=== PATIENT | female | born 1960 | race Caucasian/White ===

== ENCOUNTER 2016-12-21 19:25 | Inpatient (IN) | payer MEDICAID ==
[~2016-12-21] VITALS: Ht 157.5 cm; Wt 131.9 kg
[2016-12-21] MEDS ORDERED: OPTIRAY 350 100 ML VIAL HMH IV ONE (19:26)
[2016-12-21] MEDS ORDERED: ONDANSETRON 4 MG VIAL ONE (22:11)
[2016-12-21] MEDS ORDERED: Furosemide 40 MG/4 ML VIAL ONE (22:11)
[2016-12-21] MEDS ORDERED: DILAUDID 1 MG/ML AMP ONE (22:12)
[2016-12-22] MEDS ORDERED: SODIUM CHLORIDE 0.9% 500 ML IV ONE (01:47)
[2016-12-22] MEDS ORDERED: DILAUDID 1 MG/ML AMP ONE (01:47)
[2016-12-22] MEDS ORDERED: SODIUM CHLORIDE 0.9% 100 ML IV ONE (03:10)
[2016-12-22] MEDS ORDERED: CEFTRIAXONE 1 GM VIAL ONE (03:10)
[2016-12-22] MEDS ORDERED: KETOROLAC 30 MG/ML VIAL ONE (04:30)
[2016-12-22] MEDS ORDERED: MAG HYDROX 30 ML UDC PO PRN (04:35)
[2016-12-22] MEDS ORDERED: SALINE FLUSH 10 ML FLUSH PRN (04:35)
[2016-12-22] MEDS ORDERED: BISACODYL EC 5 MG TAB PO PRN (04:35)
[2016-12-22] MEDS ORDERED: ALU/MAG/SIM 30 ML UDC PO PRN (04:35)
[2016-12-22] MEDS ORDERED: BISACODYL 10 MG SUPP RECTAL PRN (04:35)
[2016-12-22 06:18] VITALS: BP_SYST 134; RESP 18; TEMP 98.8
[2016-12-22 06:40] VITALS: Ht 157.5 cm; Wt 131.9 kg
[2016-12-22] MEDS: PIPERACIL/TAZO 3.375GM/50ML 50 ML IV SCH ×3 (07:02→17:13)
[2016-12-22] MEDS: SODIUM CHLORIDE 0.9% FLUSH BAG 500 ML IV SCH (07:02)
[2016-12-22] MEDS: SALINE FLUSH 10 ML FLUSH SCH ×2 (08:00→20:17)
[2016-12-22] MEDS ORDERED: DEXTROSE 50% SYRINGE 50 ML IV PRN (08:15)
[2016-12-22] MEDS ORDERED: GLUCAGON 1 MG VIAL IM PRN (08:15)
[2016-12-22] MEDS: ENOXAPARIN 40 MG/0.4 ML SYR SUBQ SCH (08:37)
[2016-12-22] MEDS: ACETAMINOPHEN 325 MG TAB PO PRN (08:46)
[2016-12-22] MEDS ORDERED: FAMOTIDINE 20 MG TAB PO SCH (09:00)
[2016-12-22 10:32] VITALS: RESP 18
[2016-12-22] MEDS: Furosemide 40 MG/4 ML VIAL IV SCH ×2 (11:28→16:02)
[2016-12-22 12:03] VITALS: BP_SYST 113; RESP 18; TEMP 98.6
[2016-12-22] MEDS: CALCIUM CARB/VIT D3 600 MG TAB PO SCH ×2 (12:27→20:19)
[2016-12-22] MEDS: ASPIRIN 81 MG CHEW TAB PO SCH (12:28)
[2016-12-22] MEDS: GABAPENTIN 400 MG CAP PO SCH ×3 (12:28→20:17)
[2016-12-22] MEDS: CHOLECALCIFEROL 1,000 UNITS TAB PO SCH (12:28)
[2016-12-22] MEDS: LISINOPRIL 5 MG TAB PO SCH (12:28)
[2016-12-22 15:18] VITALS: BP_SYST 118; RESP 20; TEMP 97.9
[2016-12-22 19:22] VITALS: BP_SYST 110; RESP 20; TEMP 98.9
[2016-12-22] MEDS: FAMOTIDINE 40 MG TAB PO SCH (20:18)
[2016-12-22] MEDS: KCL CR 20 MEQ TAB PO SCH (20:19)
[2016-12-22 23:15] VITALS: RESP 28
[2016-12-23] VITALS (34 sets, daily range): BP systolic 86–130; RESP 12–29; TEMP 98.4–99.7
[2016-12-23] MEDS: NEB-ATROVENT INH SCH ×7 (00:25→22:46)
[2016-12-23] MEDS: NEB-ALBUTEROL 2.5 MG/3 ML INH SCH ×7 (00:25→22:46)
[2016-12-23] MEDS ORDERED: MISSING DOSE XX ONE ×3 (01:50→07:55)
[2016-12-23] MEDS: PIPERACIL/TAZO 3.375GM/50ML 50 ML IV SCH ×4 (01:56→17:20)
[2016-12-23] MEDS: Furosemide 40 MG/4 ML VIAL IV SCH ×3 (02:05→16:00)
[2016-12-23] MEDS: SODIUM CHLORIDE 0.9% FLUSH BAG 500 ML IV SCH (05:48)
[2016-12-23] MEDS: SALINE FLUSH 10 ML FLUSH SCH ×2 (07:59→20:00)
[2016-12-23] MEDS ORDERED: PHARMACY TO DOSE VANCOMYCIN IM SCH (08:15)
[2016-12-23] MEDS ORDERED: VANCOMYCIN 2,500 MG in SODIUM CHLORIDE 0.9% 500 ML IV ONE (08:50)
[2016-12-23] MEDS: KCL CR 20 MEQ TAB PO SCH ×2 (09:00→21:39)
[2016-12-23] MEDS ORDERED: VANCOMYCIN 1,000 MG in SODIUM CHLORIDE 0.9% 250 ML IV SCH (09:00)
[2016-12-23] MEDS: CHOLECALCIFEROL 1,000 UNITS TAB PO SCH (09:46)
[2016-12-23] MEDS: ASPIRIN 81 MG CHEW TAB PO SCH (09:46)
[2016-12-23] MEDS: CALCIUM CARB/VIT D3 600 MG TAB PO SCH ×2 (09:46→21:39)
[2016-12-23] MEDS: LISINOPRIL 5 MG TAB PO SCH (09:46)
[2016-12-23] MEDS: GABAPENTIN 400 MG CAP PO SCH ×3 (09:47→21:39)
[2016-12-23] MEDS: ENOXAPARIN 40 MG/0.4 ML SYR SUBQ SCH (09:48)
[2016-12-23] MEDS: MICONAZOLE 2% PWD TOPICAL SCH ×2 (11:57→21:55)
[2016-12-23] MEDS: ACETAMINOPHEN 325 MG TAB PO PRN (12:43)
[2016-12-23] MEDS: FAMOTIDINE 40 MG TAB PO SCH (21:39)
[2016-12-23] MEDS ORDERED: VANCOMYCIN 1,750 MG in SODIUM CHLORIDE 0.9% 500 ML IV SCH (23:00)
[2016-12-24] VITALS (20 sets, daily range): BP systolic 96–137; RESP 16–32; TEMP 98.1–98.8
[2016-12-24] MEDS: Furosemide 40 MG/4 ML VIAL IV SCH ×4 (00:21→23:16)
[2016-12-24] MEDS: PIPERACIL/TAZO 3.375GM/50ML 50 ML IV SCH ×2 (00:21→05:54)
[2016-12-24] MEDS: NEB-ATROVENT INH SCH ×6 (03:17→22:41)
[2016-12-24] MEDS: NEB-ALBUTEROL 2.5 MG/3 ML INH SCH ×6 (03:17→22:42)
[2016-12-24] MEDS: SODIUM CHLORIDE 0.9% FLUSH BAG 500 ML IV SCH (05:54)
[2016-12-24] MEDS: SALINE FLUSH 10 ML FLUSH SCH ×2 (08:22→20:12)
[2016-12-24] MEDS: CALCIUM CARB/VIT D3 600 MG TAB PO SCH ×2 (08:23→20:12)
[2016-12-24] MEDS: GABAPENTIN 400 MG CAP PO SCH ×3 (08:23→20:12)
[2016-12-24] MEDS: CHOLECALCIFEROL 1,000 UNITS TAB PO SCH (08:23)
[2016-12-24] MEDS: ASPIRIN 81 MG CHEW TAB PO SCH (08:23)
[2016-12-24] MEDS: LISINOPRIL 5 MG TAB PO SCH (08:24)
[2016-12-24] MEDS: KCL CR 20 MEQ TAB PO SCH ×2 (08:24→20:12)
[2016-12-24] MEDS: ACETAMINOPHEN 325 MG TAB PO PRN (08:25)
[2016-12-24] MEDS: MICONAZOLE 2% PWD TOPICAL SCH ×2 (08:26→21:51)
[2016-12-24] MEDS: ENOXAPARIN 40 MG/0.4 ML SYR SUBQ SCH (08:27)
[2016-12-24] MEDS: FAMOTIDINE 40 MG TAB PO SCH (20:12)
[2016-12-25] VITALS (9 sets, daily range): BP systolic 98–144; RESP 15–26; TEMP 97.7–98.5
[2016-12-25] MEDS: NEB-ALBUTEROL 2.5 MG/3 ML INH SCH ×6 (02:39→22:48)
[2016-12-25] MEDS: NEB-ATROVENT INH SCH ×6 (02:39→22:48)
[2016-12-25] MEDS: SODIUM CHLORIDE 0.9% FLUSH BAG 500 ML IV SCH (02:41)
[2016-12-25] MEDS: ACETAMINOPHEN 325 MG TAB PO PRN (07:17)
[2016-12-25] MEDS: SALINE FLUSH 10 ML FLUSH SCH ×2 (08:42→19:44)
[2016-12-25] MEDS: Furosemide 40 MG/4 ML VIAL IV SCH ×3 (08:42→23:56)
[2016-12-25] MEDS: GABAPENTIN 400 MG CAP PO SCH ×3 (08:43→20:57)
[2016-12-25] MEDS: LISINOPRIL 5 MG TAB PO SCH (08:43)
[2016-12-25] MEDS: CALCIUM CARB/VIT D3 600 MG TAB PO SCH ×2 (08:43→20:58)
[2016-12-25] MEDS: CHOLECALCIFEROL 1,000 UNITS TAB PO SCH (08:43)
[2016-12-25] MEDS: ASPIRIN 81 MG CHEW TAB PO SCH (08:43)
[2016-12-25] MEDS: KCL CR 20 MEQ TAB PO SCH ×2 (08:43→20:58)
[2016-12-25] MEDS: ENOXAPARIN 40 MG/0.4 ML SYR SUBQ SCH (08:43)
[2016-12-25] MEDS: MICONAZOLE 2% PWD TOPICAL SCH ×2 (08:44→20:58)
[2016-12-25] MEDS: FAMOTIDINE 40 MG TAB PO SCH (20:57)
[2016-12-26] VITALS (7 sets, daily range): BP systolic 110–124; RESP 20–24; TEMP 98–98.6
[2016-12-26] MEDS: SODIUM CHLORIDE 0.9% FLUSH BAG 500 ML IV SCH (01:55)
[2016-12-26] MEDS: NEB-ATROVENT INH SCH ×5 (02:35→18:32)
[2016-12-26] MEDS: NEB-ALBUTEROL 2.5 MG/3 ML INH SCH ×5 (02:35→18:32)
[2016-12-26] MEDS: ENOXAPARIN 40 MG/0.4 ML SYR SUBQ SCH (09:04)
[2016-12-26] MEDS: CHOLECALCIFEROL 1,000 UNITS TAB PO SCH (09:05)
[2016-12-26] MEDS: KCL CR 20 MEQ TAB PO SCH (09:05)
[2016-12-26] MEDS: ASPIRIN 81 MG CHEW TAB PO SCH (09:05)
[2016-12-26] MEDS: LISINOPRIL 5 MG TAB PO SCH (09:05)
[2016-12-26] MEDS: GABAPENTIN 400 MG CAP PO SCH ×2 (09:05→16:50)
[2016-12-26] MEDS: CALCIUM CARB/VIT D3 600 MG TAB PO SCH (09:05)
[2016-12-26] MEDS: MICONAZOLE 2% PWD TOPICAL SCH (09:06)
[2016-12-26] MEDS: Furosemide 40 MG/4 ML VIAL IV SCH ×2 (09:06→16:51)
[2016-12-26] MEDS: SALINE FLUSH 10 ML FLUSH SCH (09:07)
== END 2016-12-26 19:26 | disposition home health service (06) | DRG 291 ==
LOC: ENRESERVDT → ENRESERVTM → ER 19:25 → EMR 12-22 04:35 → ENPENDDIS 12-22 04:35 → EDPENDDISTM 12-22 04:35 → 4THE 12-22 06:15 → ICU 12-23 00:11 → 3NT 12-24 14:11
PROVIDERS: ADMIT Internal Medicine; ATTEND Internal Medicine
DX: I11.0 Hypertensive heart disease with heart failure (principal); J96.21 Acute and chronic respiratory failure with hypoxia; E66.2 Morbid (severe) obesity with alveolar hypoventilation; Z68.43 Body mass index [BMI] 50.0-59.9, adult; M41.9 Scoliosis, unspecified; E83.39 Other disorders of phosphorus metabolism; J96.22 Acute and chronic respiratory failure with hypercapnia; N39.0 Urinary tract infection, site not specified; E11.9 Type 2 diabetes mellitus without complications; G89.29 Other chronic pain; M54.9 Dorsalgia, unspecified; Z79.891 Long term (current) use of opiate analgesic; I50.30 Unspecified diastolic (congestive) heart failure; D72.829 Elevated white blood cell count, unspecified; F41.9 Anxiety disorder, unspecified; I50.33 Acute on chronic diastolic (congestive) heart failure; M10.9 Gout, unspecified; Z87.891 Personal history of nicotine dependence; Z79.82 Long term (current) use of aspirin; Z79.84 Long term (current) use of oral hypoglycemic drugs
CPT/HCPCS: 36415; 36600; 71010; 71020; 71260; 80048; 80053; 80202; 81001; 82550; 82553; 82803; 82947; 83605; 83735; 83880; 84100; 84484; 85025; 85610; 85730; 87040; 87088; 87804; 93005; 93306; 94640; 94660; 94799; 96361; 96365; 96375; 96376; 99223; 99232; 99233; 99239; 99291